=== PATIENT | female | born 1970 | race Caucasian/White ===

== ENCOUNTER → 2016-10-27 | Outpatient (CLI) | payer OTHER, BC ==
--- NOTE | 2016-10-27 15:14 | US ---
EXAMINATION TYPE: US thyroid st tissue head/neck DATE OF EXAM: 10/27/2016 3:03 PM COMPARISON: Prior thyroid ultrasound July 09, 2015 CLINICAL HISTORY: Follow up thyroid nodule. GLAND SIZE: Right Lobe: 4.6 x 1.0 x 1.6cm Overall Parenchyma: homogenous Left Lobe: 4.4 x 1.3 x 1.4cm Overall Parenchyma: homogeneous Isthmus Thickness: 0.3cm NODULES RIGHT: # of nodules measured on right: 2 1. 0.7 X 0.4 x 0.6 cm hypoechoic solid nodule at the upper pole with well-defined margins. This nod ule is wider than tall and shows intranodular vascularity. Prior size: 0.4 x 0.3 x 0.3 cm 2. 0.5 X 0.4 x 0.5 cm hypoechoic solid nodule at the upper pole with well-defined margins. This nodu le is wider than tall and shows intranodular vascularity. Prior size: no previous LEFT: # of nodules measured on left: 1 1. 0.4 X 0.3 x 0.5 cm hypoechoic solid nodule at the mid pole with well-defined margins. This nodul e is wider than tall and shows intranodular vascularity. Prior size: no previous ISTHMUS: # of nodules measured in the isthmus: 0 TECHNOLOGIST IMPRESSION: Homogeneous thyroid with bilateral nodules described above, bilateral neck scanned, no abnormal lymphadenopathy noted. Thyroid gland remains normal in size with some scattered small subcentimeter nodules identified. Some nodules are not clearly seen on prior exam. IMPRESSION: Scattered subcentimeter nodules are seen on current study. No new greater than 1 cm solid or cystic n odules are evident bilaterally.
== END | disposition home or self-care (01) ==
LOC: RADUSWWP 14:44
PROVIDERS: ATTEND Internal Medicine Endocrinology, Diabetes & Metabolism
DX: E04.2 Nontoxic multinodular goiter (principal)
CPT/HCPCS: 76536

== ENCOUNTER → 2017-11-01 | Outpatient (CLI) | payer OTHER ==
[2017-11-01 09:59] LABS: Basophils # (A) 0.1 k/uL (0-0.2); Basophils % (A) 1 %; Eosinophils # (A) 0.1 k/uL (0-0.7); Eosinophils % (A) 2 %; HCT 43.8 % (34.0-46.0); HGB 13.3 gm/dL (11.4-16.0); Hypochromasia Slight; Lymphocytes # (A) 3.3 k/uL (1.0-4.8); Lymphocytes % (A) 49 %; MCH 28.1 pg (25.0-35.0); MCHC 30.3 g/dL (31.0-37.0); MCV 92.6 fL (80.0-100.0); Mean Platelet Volume 7.3; Monocytes # (A) 0.4 k/uL (0-1.0); Monocytes % (A) 6 %; Neutrophils # (A) 2.6 k/uL (1.3-7.7); Neutrophils % (A) 39 %; Platelet Count 361 k/uL (150-450); RBC 4.73 m/uL (3.80-5.40); RDW 15.3 % (11.5-15.5); WBC 6.7 k/uL (3.8-10.6)
[2017-11-01 10:16] LABS: ALT 51 U/L (9-52); AST 30 U/L (14-36); Albumin 4.1 g/dL (3.5-5.0); Alkaline Phosphatase 70 U/L (38-126); Anion Gap 7 mmol/L; Blood Urea Nitrogen 18 mg/dL (7-17); Calcium 10.1 mg/dL (8.4-10.2); Carbon Dioxide 36 mmol/L (22-30); Chloride 100 mmol/L (98-107); Cholesterol 185 mg/dL (<200); Glucose 106 mg/dL (74-99); HDL Cholesterol 66 mg/dL (40-60); LDL Cholesterol,Calculated 101 mg/dL (0-99); Potassium 4.7 mmol/L (3.5-5.1); Sodium 143 mmol/L (137-145); Total Bilirubin 0.5 mg/dL (0.2-1.3); Triglycerides 90 mg/dL (<150)
[2017-11-01 10:30] LABS: T4, Free (Free Thyroxine) 0.96 ng/dL (0.78-2.19)
--- NOTE | 2017-11-01 11:03 | US ---
EXAMINATION TYPE: US thyroid st tissue head/neck DATE OF EXAM: 11/01/2017 COMPARISON: 10/27/2016 CLINICAL HISTORY: 47 year-old female follow-up multinodular thyroid E04.2 Multinodular Thyroid. Follo w up nodules TECHNIQUE: Multiple sonographic images of the thyroid gland are obtained. FINDINGS: GLAND SIZE: Right Lobe: 4.5 x 1.7 x 0.9 cm Overall Parenchyma: homogenous Left Lobe: 4.4 x 1.7 x 1.2 cm Overall Parenchyma: homogeneous Isthmus Thickness: 0.3 cm NODULES RIGHT: # of nodules measured on right: 2 1. 0.7 X 0.5 x 0.5 cm hypoechoic mixed nodule at the upper pole with well-defined margins. This no dule is taller than wide and shows intranodular vascularity. Prior size: 0.7 x 0.4 x 0.6 cm 2. 0.5 X 0.5 x 0.4 cm hypoechoic solid nodule at the upper pole with well-defined margins. This nod ule is taller than wide and shows intranodular vascularity. Prior size: 0.5 x 0.4 x 0.5 cm LEFT: # of nodules measured on left: 1 1. 0.5 X 0.5 x 0.3 cm hypoechoic solid nodule at the mid pole with well-defined margins. This nodu le is taller than wide and shows intranodular vascularity. Prior size: 0.4 x 0.3 x 0.5 cm ISTHMUS: # of nodules measured in the isthmus: 0 Bilateral neck scanned, no evidence of lymphadenopathy. IMPRESSION: 3 nodules, 2 on the right and one on the left all measuring 7 mm or less, not significantly changed f rom 10/27/2016.
[2017-11-01 16:10] LABS: Hemoglobin A1C 5.6 % (4.0-6.0)
== END | disposition home or self-care (01) ==
LOC: RADUSWWP 09:04
PROVIDERS: ATTEND Internal Medicine Critical Care Medicine
DX: E04.2 Nontoxic multinodular goiter (principal); C50.919 Malignant neoplasm of unspecified site of unspecified female breast; E03.9 Hypothyroidism, unspecified; R53.83 Other fatigue; Z79.899 Other long term (current) drug therapy
CPT/HCPCS: 36415; 76536; 80053; 80061; 82306; 83036; 84439; 84443; 85025

== ENCOUNTER 2018-10-07 16:04 | Emergency (ER) | payer OTHER ==
[2018-10-07 16:10] VITALS: BP 162/93; PULSE 110; RESP 20; TEMP 98.1
--- NOTE | 2018-10-07 16:24 | ED ---
General Adult HPI - General Chief complaint: Fall Stated complaint: IHS-Fall Time Seen by Provider: 10/07/18 16:11 Source: patient Mode of arrival: ambulatory Limitations: no limitations - History of Present Illness Initial comments: Patient is a 48-year-old female presents with a chief complaint of a fall and left lower back pain. Patient says that she felt on wooden steps at approximately 2 PM. Patient states that she has tightness of the muscles on the left side of her lower back. She denies loss of consciousness or head trauma. She was able to ambulate after the event. She drove herself to the emergency department. She denies any other complaints or injuries today. - Related Data Home Medications Medication Instructions Recorded Confirmed Biotin 5 mg PO DAILY 04/25/14 08/28/15 Budesonide [Pulmicort Flexhaler] 2 puff INHALATION BID 04/25/14 08/28/15 Cetirizine HCl/Pseudoephedrine 1 each PO DAILY 04/25/14 08/28/15 [Zyrtec-D Tablet] Cholecalciferol [Vitamin D3] 1,000 unit PO DAILY 04/25/14 08/28/15 Montelukast Sodium [Singulair] 10 mg PO HS 04/25/14 08/28/15 RABEprazole SODIUM [Aciphex] 20 mg PO BID 04/25/14 08/28/15 Tamoxifen [Nolvadex] 20 mg PO DAILY 04/25/14 08/28/15 diphenhydrAMINE HCL [Benadryl] 25 mg PO HS 04/25/14 08/28/15 Aspirin 81 mg PO DAILY 08/26/15 08/28/15 I-Cool 1 tab PO DAILY 08/26/15 08/28/15 Meclizine [Antivert] 12.5 mg PO BID 08/26/15 08/28/15 Venlafaxine HCl [Effexor] 37.5 mg PO PC-SUPPER 08/26/15 08/28/15 cloNIDine HCL [Catapres] 0.2 mg PO HS 08/26/15 08/28/15 Fesoterodine Fumarate [Toviaz] 8 mg PO DAILY 08/28/15 08/28/15 Olodaterol HCl [[place]riverdi Respimat] 2 inhalation PO DAILY 08/28/15 08/28/15 Previous Rx's Medication Instructions Recorded HYDROcodone/APAP 5-325MG [[place] 1 each PO Q4HR PRN #30 tab 08/02/14 5-325] Ibuprofen [Motrin] 800 mg PO QID PRN #30 tab 08/02/14 Acetaminophen Tab [Tylenol Tab] 1,000 mg PO Q6HR #28 tablet 10/07/18 Ibuprofen [Motrin] 600 mg PO Q6HR #21 tab 10/07/18 Allergies Allergy/AdvReac Type Severity Reaction Status Date / Time adhesive Allergy Rash/Hives Verified 10/07/18 16:10 corn syrup Allergy Wheezing Verified 10/07/18 16:10 Milk Containing Products Allergy Wheezing Verified 10/07/18 16:10 Review of Systems ROS Statement: Those systems with pertinent positive or pertinent negative responses have been documented in the HPI. ROS Other: All systems not noted in ROS Statement are negative. Musculoskeletal: Reports: back pain Past Medical History Past Medical History: Asthma, Cancer, GERD/Reflux, Hypertension Additional Past Medical History / Comment(s): seasonal allergies, breast cancer. VERTIGO History of Any Multi-Drug Resistant Organisms: None Reported Past Surgical History: Breast Surgery, Hysterectomy, Tonsillectomy Additional Past Surgical History / Comment(s): lumpectomy bilat. bladder repair x2- r/t 2013 bladder and urethra injury during hysterectomy. rt breast incisional bx. colonocopy. laporoscopy. colonoscopy. oophorectomy Past Anesthesia/Blood Transfusion Reactions: Previous Problems w/ Anesthesia, Motion Sickness, Postoperative Nausea & Vomiting (PONV) Additional Past Anesthesia/Blood Transfusion Reaction / Comment(s): sensitive to general anesthesia Past Psychological History: No Psychological Hx Reported Smoking Status: Never smoker Past Alcohol Use History: Occasional Past Drug Use History: None Reported - Past Family History Mother Family Medical History: No Reported History General Exam Limitations: no limitations General appearance: alert, in no apparent distress Head exam: Present: atraumatic, normocephalic, normal inspection Eye exam: Present: normal appearance, PERRL, EOMI. Absent: scleral icterus, conjunctival injection, periorbital swelling ENT exam: Present: normal exam, mucous membranes moist Neck exam: Present: normal inspection. Absent: tenderness, meningismus, lymphadenopathy Respiratory exam: Present: normal lung sounds bilaterally. Absent: respiratory distress, wheezes, rales, rhonchi, stridor Cardiovascular Exam: Present: regular rate, normal rhythm, normal heart sounds. Absent: systolic murmur, diastolic murmur, rubs, gallop, clicks GI/Abdominal exam: Present: soft, normal bowel sounds. Absent: distended, tenderness, guarding, rebound, rigid Rectal exam: Present: deferred Extremities exam: Present: normal inspection, full ROM, normal capillary refill. Absent: tenderness, pedal edema, joint swelling, calf tenderness Back exam: Present: tenderness (Left lower back tenderness to palpation, hypertonic muscles appreciated.), muscle spasm, paraspinal tenderness, other. Absent: vertebral tenderness Neurological exam: Present: alert, oriented X3, CN II-XII intact Psychiatric exam: Present: normal affect, normal mood Skin exam: Present: warm, dry, intact, normal color. Absent: rash Course Vital Signs 10/07/18 16:07 Temperature 98.1 F Pulse Rate 110 H Respiratory 20 Rate Blood Pressure 162/93 O2 Sat by Pulse 100 Oximetry Medical Decision Making - Medical Decision Making Patient presents with a chief complaint of back pain after a fall. On initial evaluation, vital signs are stable patient is mildly tachycardic. She is in no acute distress. She denies any bowel or bladder incontinence. She is able to angulate well without assistance. There is no midline tenderness. At this time there are no indication for x-rays. Patient was prescribed Motrin and Tylenol and instructed to use heat and ice as tolerated. Patient stable for discharge. She was instructed to follow up with primary care 1-2 days, return to ED if symptoms worsen or change. Disposition Clinical Impression: Fall Disposition: HOME SELF-CARE Condition: Good Instructions: Muscle Spasm (ED) Prescriptions: Acetaminophen Tab [Tylenol Tab] 1,000 mg PO Q6HR #28 tablet Ibuprofen [Motrin] 600 mg PO Q6HR #21 tab Is patient prescribed a controlled substance at d/c from ED?: No Referrals: Lloyd Brooks DO [Primary Care Provider] - 1-2 days
== END 2018-10-07 16:54 | disposition home or self-care (01) ==
LOC: EC 16:04
DX: M62.830 Muscle spasm of back (principal); R00.0 Tachycardia, unspecified; J45.909 Unspecified asthma, uncomplicated; K21.9 Gastro-esophageal reflux disease without esophagitis; I10 Essential (primary) hypertension; Z91.011 Allergy to milk products; Z91.018 Allergy to other foods; Z91.048 Other nonmedicinal substance allergy status; Z79.51 Long term (current) use of inhaled steroids; Z79.82 Long term (current) use of aspirin; Z79.899 Other long term (current) drug therapy; Z85.3 Personal history of malignant neoplasm of breast; Z98.890 Other specified postprocedural states; W01.0XXA Fall on same level from slipping, tripping and stumbling without subsequent striking against object, initial encounter; Y99.0 Civilian activity done for income or pay
CPT/HCPCS: 99283

== ENCOUNTER → 2018-10-14 | Outpatient (CLI) | payer OTHER ==
--- NOTE | 2018-10-14 17:56 | XR ---
EXAMINATION TYPE: XR Hip RT and AP Pelvis DATE OF EXAM: 10/14/2018 COMPARISON: NONE HISTORY: Right hip pain after a fall TECHNIQUE: A single AP view of the pelvis is obtained. Two views of the right hip are obtained. FINDINGS: The pelvic ring is intact. Proximal right femur and hip joint appear normal. There is no si gn of hip dysplasia. Sacroiliac joints appear normal. IMPRESSION: Normal pelvis and right hip exam.
== END | disposition home or self-care (01) ==
LOC: RADXRMAIN 17:08
PROVIDERS: ATTEND Emergency Medicine
DX: S73.101A Unspecified sprain of right hip, initial encounter (principal); S30.0XXA Contusion of lower back and pelvis, initial encounter
CPT/HCPCS: 73502

== ENCOUNTER → 2018-10-19 | Outpatient (CLI) | payer OTHER ==
--- NOTE | 2018-10-19 14:56 | XR ---
EXAMINATION TYPE: XR lumbar spine 2 or 3V DATE OF EXAM: 10/19/2018 COMPARISON: NONE HISTORY: 48-year-old female lumbar pain after fall last month TECHNIQUE: 3 views FINDINGS: 5 lumbar type vertebral bodies. Incidental posterior fusion defect at L5. Mild multilevel degenerativ e disc disease. There is a grade 1, nearly grade 2 anterolisthesis at L5-S1. Vertebral body heights a re preserved. IMPRESSION: 1. Grade 1, nearly grade 2 anterolisthesis of L5-S1. This could be on a degenerative basis or could r eflect underlying L5 spondylolysis. 2. Mild multilevel degenerative disc disease. Facet arthropathy mid to lower lumbar spine. 3. No vertebral compression collapse.
== END ==
LOC: RADXRMAIN 14:29
PROVIDERS: ATTEND Emergency Medicine
DX: S30.0XXD Contusion of lower back and pelvis, subsequent encounter (principal)
CPT/HCPCS: 72100

== ENCOUNTER → 2018-10-28 | Outpatient (CLI) | payer OTHER ==
--- NOTE | 2018-10-28 15:21 | US ---
EXAMINATION TYPE: US thyroid st tissue head/neck DATE OF EXAM: 10/28/2018 COMPARISON: US 11/01/2017 and 10/27/2016 CLINICAL HISTORY: E04.2 Nodules. GLAND SIZE: Right Lobe: 5.2 x 1.1 x 1.7 cm Overall Parenchyma: homogenous Left Lobe: 4.6 x 1.5 x 1.6 cm Overall Parenchyma: homogeneous Isthmus Thickness: 0.3 cm NODULES RIGHT: # of nodules measured on right: 2 1. 0.7 X 0.4 x 0.6 cm hypoechoic mixed nodule at the upper pole with well-defined margins; . This nodule is wider than tall and shows intranodular vascularity. Prior size: 0.7 x 0.5 x 0.5 cm 2. 0.5 X 0.5 x 0.6 cm hypoechoic solid nodule at the upper pole with well-defined margins; . This n odule is wider than tall and shows intranodular vascularity. Prior size: 0.5 x 0.5 x 0.4 cm LEFT: # of nodules measured on left: 1 1. 0.6 X 0.4 x 0.4 cm hypoechoic solid nodule at the mid pole with well-defined margins; . This no dule is wider than tall and shows intranodular vascularity. Prior size: 0.5 x 0.5 x 0.3 cm ISTHMUS: # of nodules measured in the isthmus: 0 Bilateral neck scanned, no evidence of lymphadenopathy. IMPRESSION: Similar-appearing subcentimeter bilateral thyroid nodules in comparison to exam of 10/27/2016. Continu ed surveillance could be considered.
== END | disposition home or self-care (01) ==
LOC: RADUSWWP 14:40
PROVIDERS: ATTEND Internal Medicine Endocrinology, Diabetes & Metabolism
DX: E04.2 Nontoxic multinodular goiter (principal)
CPT/HCPCS: 76536

== ENCOUNTER → 2018-12-10 | Outpatient (CLI) | payer OTHER ==
[2018-12-10 10:39] LABS: Basophils # (A) 0.1 k/uL (0-0.2); Basophils % (A) 1 %; Eosinophils # (A) 0.2 k/uL (0-0.7); Eosinophils % (A) 3 %; HCT 41.7 % (34.0-46.0); HGB 13.3 gm/dL (11.4-16.0); Lymphocytes # (A) 2.9 k/uL (1.0-4.8); Lymphocytes % (A) 47 %; MCH 29.2 pg (25.0-35.0); MCHC 31.9 g/dL (31.0-37.0); MCV 91.5 fL (80.0-100.0); Mean Platelet Volume 7.1; Monocytes # (A) 0.4 k/uL (0-1.0); Monocytes % (A) 6 %; Neutrophils # (A) 2.4 k/uL (1.3-7.7); Neutrophils % (A) 39 %; Platelet Count 379 k/uL (150-450); RBC 4.56 m/uL (3.80-5.40); RDW 14.3 % (11.5-15.5)
[2018-12-10 16:54] LABS: Albumin 4.6 g/dL (3.80-4.90); Albumin/Globulin Ratio 1.77 (1.60-3.17); Anion Gap 6.5 mmol/L (4.00-12.00); Calcium 10.1 mg/dL (8.7-10.3); Carbon Dioxide 29.5 mmol/L (21.6-31.8); Globulin 2.6 g/dL (1.6-3.3); Potassium 4.2 mmol/L (3.5-5.5); Total Bilirubin 0.4 mg/dL (0.3-1.2); Total Protein 7.2 g/dL (6.2-8.2)
[2018-12-10 17:02] LABS: T4, Free (Free Thyroxine) 1.2 ng/dL (0.80-1.80)
[2018-12-10 20:15] LABS: Hemoglobin A1C 5.7 % (4.0-6.0)
== END | disposition home or self-care (01) ==
LOC: LABWHC1 09:58
PROVIDERS: ATTEND Internal Medicine Critical Care Medicine
DX: Z00.00 Encounter for general adult medical examination without abnormal findings (principal); J45.909 Unspecified asthma, uncomplicated; C50.919 Malignant neoplasm of unspecified site of unspecified female breast; K21.9 Gastro-esophageal reflux disease without esophagitis; Z86.39 Personal history of other endocrine, nutritional and metabolic disease
CPT/HCPCS: 36415; 80053; 80061; 82306; 83036; 84439; 84443; 85025

== ENCOUNTER 2019-01-30 17:24 | Emergency (ER) | payer OTHER ==
[2019-01-30 17:29] VITALS: RESP 18; TEMP 98.3
[2019-01-30] MEDS ORDERED: SODIUM CHLORIDE 0.9% 500 ML 500 ML IV STA (17:50)
--- NOTE | 2019-01-30 17:54 | ED ---
General Adult HPI - General Chief complaint: Arrhythmia/Palpitations Stated complaint: palpitations Time Seen by Provider: 01/30/19 17:25 Source: patient, RN notes reviewed Mode of arrival: ambulatory Limitations: no limitations - History of Present Illness Initial comments: This is a 49-year-old female presents emergency Department with a past medical history significant for breast cancer. Patient comes in today because she felt some fluttering in her chest when she went to an urgent care and they were concerned so they wanted to come see us in the emergency department. Patient denies any chest pain. Patient denies any shortness of breath or difficulty breathing. Patient denies any history of any arrhythmias or atrial fibrillation. Patient denies any recent fever chills or cough per patient denies any excessive use of caffeine. Patient denies any nausea vomiting diarrhea. Patient denies abdominal pain. - Related Data Home Medications Medication Instructions Recorded Confirmed Biotin 5 mg PO DAILY 04/25/14 01/30/19 Cetirizine HCl/Pseudoephedrine 1 each PO DAILY 04/25/14 01/30/19 [Zyrtec-D Tablet] Cholecalciferol [Vitamin D3] 1,000 unit PO DAILY 04/25/14 01/30/19 Montelukast Sodium [Singulair] 10 mg PO HS 04/25/14 01/30/19 RABEprazole SODIUM [Aciphex] 20 mg PO BID 04/25/14 01/30/19 diphenhydrAMINE HCL [Benadryl] 25 mg PO HS 04/25/14 01/30/19 Meclizine [Antivert] 12.5 mg PO BID 08/26/15 01/30/19 cloNIDine HCL [Catapres] 0.2 mg PO HS 08/26/15 01/30/19 ALPRAZolam [Xanax] 0.25 mg PO BID 01/30/19 01/30/19 Ascorbic Acid [Vitamin C] 1,000 mg PO DAILY 01/30/19 01/30/19 Calcium 500mg Gummy 500 mg PO BID 01/30/19 01/30/19 Fesoterodine Fumarate [Toviaz] 4 mg PO DAILY PRN 01/30/19 01/30/19 HYDROcodone/APAP 7.5-325MG [[place] 1 tab PO Q6H PRN 01/30/19 01/30/19 7.5-325] Maxair Autohaler 1 puff INHALATION RT-DAILY 01/30/19 01/30/19 Meloxicam [Mobic] 7.5 mg PO DAILY 01/30/19 01/30/19 Pedi Multivit No.25/Folic Acid 300 mcg PO DAILY 01/30/19 01/30/19 [Flintstones Multivit Chew Tab] Polyethylene Glycol 3350 [Miralax] 17 gm PO DAILY PRN 01/30/19 01/30/19 Ranitidine HCl [Zantac] 300 mg PO HS 01/30/19 01/30/19 Salmeterol Xinafoate [Serevent 1 puff INHALATION RT-BID PRN 01/30/19 01/30/19 Diskus] cloNIDine HCL [Catapres] 0.05 mg PO BID PRN 01/30/19 01/30/19 Allergies Allergy/AdvReac Type Severity Reaction Status Date / Time adhesive Allergy Rash/Hives Verified 01/30/19 17:58 coconut Allergy Anaphylaxis Verified 01/30/19 18:15 corn syrup Allergy Wheezing Verified 01/30/19 17:58 Milk Containing Products Allergy Wheezing Verified 01/30/19 17:58 walnut Allergy Anaphylaxis Verified 01/30/19 18:15 Review of Systems ROS Statement: Those systems with pertinent positive or pertinent negative responses have been documented in the HPI. ROS Other: All systems not noted in ROS Statement are negative. Past Medical History Past Medical History: Asthma, Cancer, GERD/Reflux, Hypertension Additional Past Medical History / Comment(s): seasonal allergies, breast cancer. VERTIGO History of Any Multi-Drug Resistant Organisms: None Reported Past Surgical History: Breast Surgery, Hysterectomy, Tonsillectomy Additional Past Surgical History / Comment(s): lumpectomy bilat. bladder repair x2- r/t 2014 bladder and urethra injury during hysterectomy. rt breast incisional bx. colonocopy. laporoscopy. colonoscopy. oophorectomy Past Anesthesia/Blood Transfusion Reactions: Previous Problems w/ Anesthesia, Motion Sickness, Postoperative Nausea & Vomiting (PONV) Additional Past Anesthesia/Blood Transfusion Reaction / Comment(s): sensitive to general anesthesia Past Psychological History: No Psychological Hx Reported Smoking Status: Never smoker Past Alcohol Use History: Occasional Past Drug Use History: None Reported - Past Family History Mother Family Medical History: No Reported History General Exam - General Exam Comments Initial Comments: GENERAL: Patient is well-developed and well-nourished. Patient is nontoxic and well- hydrated and is in mild distress. ENT: Neck is soft and supple. No significant lymphadenopathy is noted. Oropharynx is clear. Moist mucous membranes. Neck has full range of motion without eliciting any pain. EYES: The sclera were anicteric and conjunctiva were pink and moist. Extraocular movements were intact and pupils were equal round and reactive to light. Eyelids were unremarkable. PULMONARY: Unlabored respirations. Good breath sounds bilaterally. No audible rales rhonchi or wheezing was noted. CARDIOVASCULAR: There is a regular rate and rhythm without any murmurs gallops or rubs. ABDOMEN: Soft and nontender with normal bowel sounds. No palpable organomegaly was noted. There is no palpable pulsatile mass. SKIN: Skin is clear with no lesions or rashes and otherwise unremarkable. NEUROLOGIC: Patient is alert and oriented x3. Cranial nerves II through XII are grossly intact. Motor and sensory are also intact. Normal speech, volume and content. Symmetrical smile. MUSCULOSKELETAL: Normal extremities with adequate strength and full range of motion. No lower extremity swelling or edema. No calf tenderness. LYMPHATICS: No significant lymphadenopathy is noted PSYCHIATRIC: Patient is mildly anxious Limitations: no limitations Course Vital Signs 01/30/19 01/30/19 17:25 18:33 Temperature 98.3 F Pulse Rate 103 H 92 Respiratory 18 18 Rate Blood Pressure 158/89 O2 Sat by Pulse 99 99 Oximetry Medical Decision Making - Medical Decision Making EKG shows normal sinus rhythm at 98 bpm NM interval is on a 38 QRSs 80 QT interval 360 QTC is 459 per patient's EKG shows no ST segment elevation or depression or T wave abnormalities are noted. Chest x-ray shows no acute abnormality. Patient had no ectopy while in the emergency department. - Lab Data Result diagrams: 01/30/19 18:27 01/30/19 18:27 Lab Results 01/30/19 01/30/19 01/30/19 Range/Units 18:27 18:27 18:27 WBC 5.8 (3.8-10.6) k/uL RBC 4.63 (3.80-5.40) m/uL Hgb 13.1 (11.4-16.0) gm/dL Hct 40.2 (34.0-46.0) % MCV 86.6 (80.0-100.0) fL MCH 28.3 (25.0-35.0) pg MCHC 32.7 (31.0-37.0) g/dL RDW 14.0 (11.5-15.5) % Plt Count 369 (150-450) k/uL Neutrophils % 37 % Lymphocytes % 50 % Monocytes % 6 % Eosinophils % 2 % Basophils % 1 % Neutrophils # 2.2 (1.3-7.7) k/uL Lymphocytes # 2.9 (1.0-4.8) k/uL Monocytes # 0.4 (0-1.0) k/uL Eosinophils # 0.1 (0-0.7) k/uL Basophils # 0.1 (0-0.2) k/uL PT 9.9 (9.0-12.0) sec INR 0.9 (<1.2) APTT 26.9 (22.0-30.0) sec Sodium 139 (137-145) mmol/L Potassium 4.1 (3.5-5.1) mmol/L Chloride 103 (98-107) mmol/L Carbon Dioxide 29 (22-30) mmol/L Anion Gap 7 mmol/L BUN 15 (7-17) mg/dL Creatinine 0.64 (0.52-1.04) mg/dL Est GFR (CKD-EPI)AfAm >90 (>60 ml/min/1.73 sqM) Est GFR (CKD-EPI)NonAf >90 (>60 ml/min/1.73 sqM) Glucose 99 (74-99) mg/dL Calcium 10.2 (8.4-10.2) mg/dL Magnesium 2.1 (1.6-2.3) mg/dL Total Bilirubin 0.3 (0.2-1.3) mg/dL AST 37 H (14-36) U/L ALT 48 (9-52) U/L Alkaline Phosphatase 87 (38-126) U/L Troponin I (0.000-0.034) ng/mL Total Protein 7.5 (6.3-8.2) g/dL Albumin 4.7 (3.5-5.0) g/dL TSH 0.251 L (0.465-4.680) mIU/L Free T4 0.94 (0.78-2.19) ng/dL 01/30/19 Range/Units 18:27 WBC (3.8-10.6) k/uL RBC (3.80-5.40) m/uL Hgb (11.4-16.0) gm/dL Hct (34.0-46.0) % MCV (80.0-100.0) fL MCH (25.0-35.0) pg MCHC (31.0-37.0) g/dL RDW (11.5-15.5) % Plt Count (150-450) k/uL Neutrophils % % Lymphocytes % % Monocytes % % Eosinophils % % Basophils % % Neutrophils # (1.3-7.7) k/uL Lymphocytes # (1.0-4.8) k/uL Monocytes # (0-1.0) k/uL Eosinophils # (0-0.7) k/uL Basophils # (0-0.2) k/uL PT (9.0-12.0) sec INR (<1.2) APTT (22.0-30.0) sec Sodium (137-145) mmol/L Potassium (3.5-5.1) mmol/L Chloride (98-107) mmol/L Carbon Dioxide (22-30) mmol/L Anion Gap mmol/L BUN (7-17) mg/dL Creatinine (0.52-1.04) mg/dL Est GFR (CKD-EPI)AfAm (>60 ml/min/1.73 sqM) Est GFR (CKD-EPI)NonAf (>60 ml/min/1.73 sqM) Glucose (74-99) mg/dL Calcium (8.4-10.2) mg/dL Magnesium (1.6-2.3) mg/dL Total Bilirubin (0.2-1.3) mg/dL AST (14-36) U/L ALT (9-52) U/L Alkaline Phosphatase (38-126) U/L Troponin I <0.012 (0.000-0.034) ng/mL Total Protein (6.3-8.2) g/dL Albumin (3.5-5.0) g/dL TSH (0.465-4.680) mIU/L Free T4 (0.78-2.19) ng/dL Disposition Clinical Impression: Palpitations Disposition: HOME SELF-CARE Condition: Good Instructions (If sedation given, give patient instructions): Heart Palpitations (ED) Is patient prescribed a controlled substance at d/c from ED?: No Referrals: Lloyd Brooks DO [Primary Care Provider] - 1-2 days Time of Disposition: 20:17
[2019-01-30 18:37] LABS: Basophils # (A) 0.1 k/uL (0-0.2); Basophils % (A) 1 %; Eosinophils # (A) 0.1 k/uL (0-0.7); Eosinophils % (A) 2 %; HCT 40.2 % (34.0-46.0); HGB 13.1 gm/dL (11.4-16.0); Lymphocytes # (A) 2.9 k/uL (1.0-4.8); Lymphocytes % (A) 50 %; MCH 28.3 pg (25.0-35.0); MCHC 32.7 g/dL (31.0-37.0); MCV 86.6 fL (80.0-100.0); Mean Platelet Volume 7.1; Monocytes # (A) 0.4 k/uL (0-1.0); Monocytes % (A) 6 %; Neutrophils # (A) 2.2 k/uL (1.3-7.7); Neutrophils % (A) 37 %; Platelet Count 369 k/uL (150-450); RBC 4.63 m/uL (3.80-5.40); WBC 5.8 k/uL (3.8-10.6)
[2019-01-30 18:46] LABS: INR 0.9 (<1.2); Partial Thromboplastin Time 26.9 sec (22.0-30.0); Prothrombin Time 9.9 sec (9.0-12.0)
[2019-01-30 18:47] LABS: ALT 48 U/L (9-52); AST 37 U/L (14-36); Albumin 4.7 g/dL (3.5-5.0); Alkaline Phosphatase 87 U/L (38-126); Anion Gap 7 mmol/L; Blood Urea Nitrogen 15 mg/dL (7-17); Calcium 10.2 mg/dL (8.4-10.2); Carbon Dioxide 29 mmol/L (22-30); Chloride 103 mmol/L (98-107); Glucose 99 mg/dL (74-99); Magnesium 2.1 mg/dL (1.6-2.3); Potassium 4.1 mmol/L (3.5-5.1); Sodium 139 mmol/L (137-145); Total Bilirubin 0.3 mg/dL (0.2-1.3); Total Protein 7.5 g/dL (6.3-8.2)
[2019-01-30 19:03] LABS: T4, Free (Free Thyroxine) 0.94 ng/dL (0.78-2.19)
--- NOTE | 2019-01-30 19:07 | XR ---
EXAMINATION TYPE: XR chest 2V DATE OF EXAM: 01/30/2019 COMPARISON: Chest x-ray December 06, 2017. HISTORY: Palpitations for a few weeks. History of breast cancer. TECHNIQUE: Frontal and lateral views of the chest are obtained. FINDINGS: Overlying EKG leads are present. There is no focal air space opacity, pleural effusion, or pneumothorax seen. The cardiac silhouette size is within normal limits. The osseous structures are intact. IMPRESSION: No acute cardiopulmonary process. No significant change from prior.
[2019-01-30 20:38] VITALS: BP 150/85; PULSE 89
== END 2019-01-30 20:45 | disposition home or self-care (01) ==
LOC: EC 17:24
DX: R00.2 Palpitations (principal); J45.909 Unspecified asthma, uncomplicated; K21.9 Gastro-esophageal reflux disease without esophagitis; I10 Essential (primary) hypertension; Z79.899 Other long term (current) drug therapy; Z79.1 Long term (current) use of non-steroidal anti-inflammatories (NSAID); Z91.011 Allergy to milk products; Z91.018 Allergy to other foods; Z91.048 Other nonmedicinal substance allergy status; Z85.3 Personal history of malignant neoplasm of breast; Z98.890 Other specified postprocedural states
CPT/HCPCS: 36415; 71046; 80053; 83735; 84439; 84443; 84484; 85025; 85610; 85730; 93005; 96360; 96361; 99285

== ENCOUNTER → 2019-06-20 | Outpatient (CLI) | payer OTHER ==
--- NOTE | 2019-06-20 09:03 | US ---
EXAMINATION TYPE: US abdomen complete DATE OF EXAM: 06/20/2019 COMPARISON: CT of 2015 CLINICAL HISTORY: R10.11 upper right quadrant pain. EXAM MEASUREMENTS: Liver Length: 13.7 cm Gallbladder Wall: 0.2 cm CBD: 0.5 cm Spleen: 10.1 cm Right Kidney: 11.4 x 4.4 x 5.8 cm Left Kidney: 10.7 x 5.0 x 4.6 cm Pancreas: wnl Liver: wnl Gallbladder: wnl Evidence for sonographic Collins's sign: no CBD: wnl Spleen: wnl Right Kidney: No hydronephrosis or masses seen Left Kidney: No hydronephrosis or masses seen Upper IVC: wnl Abd Aorta: wnl The liver is homogenous. The intrahepatic portion of the IVC and proximal abdominal aorta are within normal limits. There is no evidence of cholelithiasis. Common bile duct is unremarkable. The visu alized portions of the pancreas are homogenous. The spleen is unremarkable. Kidneys are symmetric a nd free of hydronephrosis. No renal lesions are seen. IMPRESSION: No sonographic evidence of cholelithiasis nor acute cholecystitis. Visualized portions of the liver appear homogeneous. No hydronephrosis of either kidney. Unremarkable abdominal ultrasound.
== END | disposition home or self-care (01) ==
LOC: RADUSWWP 07:31
PROVIDERS: ATTEND Internal Medicine Critical Care Medicine
DX: R10.11 Right upper quadrant pain (principal)
CPT/HCPCS: 76700

== ENCOUNTER → 2019-08-04 | Outpatient (CLI) | payer OTHER | END | disposition home or self-care (01) | LOC: LABWHC1 09:34 | PROVIDERS: ATTEND Nurse Practitioner Adult Health | DX: E03.9 Hypothyroidism, unspecified (principal); R00.0 Tachycardia, unspecified | CPT/HCPCS: 36415; 84443; 84481 ==

== ENCOUNTER → 2019-09-08 | Outpatient (CLI) | payer OTHER ==
[2019-09-08 18:20] LABS: Ionized Calcium 5.1 mg/dL (4.5-5.3)
[2019-09-09 00:20] LABS: African American GFR (CKD) 86.4 (60.0-200.0); Anion Gap 7.2 mmol/L (4.00-12.00); BUN/Creat Ratio 21.11 Ratio (12.00-20.00); Calcium 9.8 mg/dL (8.7-10.3); Carbon Dioxide 29.8 mmol/L (21.6-31.8); Magnesium 2.1 mg/dL (1.5-2.4); Non-African American GFR(CKD) 74.6 (60.0-200.0); Phosphorus 3.5 mg/dL (2.4-5.1); Potassium 4.3 mmol/L (3.5-5.5)
== END | disposition home or self-care (01) ==
LOC: LABWHC1 17:25
PROVIDERS: ATTEND Internal Medicine
DX: E83.52 Hypercalcemia (principal)
CPT/HCPCS: 36415; 80048; 82306; 82330; 83735; 83970; 84100

== ENCOUNTER → 2019-12-04 | Outpatient (CLI) | payer BC ==
[2019-12-04 10:46] LABS: Basophils # (A) 0.2 k/uL (0-0.2); Basophils % (A) 3 %; Eosinophils # (A) 0.1 k/uL (0-0.7); Eosinophils % (A) 1 %; HCT 44.1 % (34.0-46.0); HGB 14.1 gm/dL (11.4-16.0); Lymphocytes # (A) 2.6 k/uL (1.0-4.8); Lymphocytes % (A) 37 %; MCH 28.6 pg (25.0-35.0); MCHC 32.1 g/dL (31.0-37.0); MCV 89.3 fL (80.0-100.0); Mean Platelet Volume 7.6; Monocytes # (A) 0.3 k/uL (0-1.0); Monocytes % (A) 5 %; Neutrophils # (A) 3.5 k/uL (1.3-7.7); Neutrophils % (A) 50 %; Platelet Count 396 k/uL (150-450); RBC 4.94 m/uL (3.80-5.40); RDW 13.9 % (11.5-15.5); WBC 6.9 k/uL (3.8-10.6)
[2019-12-04 11:02] LABS: Ionized Calcium 5.3 mg/dL (4.5-5.3)
[2019-12-04 16:36] LABS: ALT 26 U/L (8-44); AST 23 U/L (13-35); African American GFR (CKD) 99.6 (60.0-200.0); Albumin/Globulin Ratio 2.23 (1.60-3.17); Alkaline Phosphatase 100 U/L (41-126); Bilirubin, Conjugated <0.20 mg/dL (0.20-0.40); Carbon Dioxide 28.4 mmol/L (21.6-31.8); Chloride 105 mmol/L (96-109); Chol/HDL Ratio 2.85; Cholesterol 228 mg/dL (0-200); Globulin 2.2 g/dL (1.6-3.3); Glucose 94 mg/dL (70-110); LDL Cholesterol,Calculated 131.6 mg/dL (0.0-131.0); Potassium 4.1 mmol/L (3.5-5.5); Sodium 143 mmol/L (135-145); Total Bilirubin 0.5 mg/dL (0.2-1.2); Total Protein 7.1 g/dL (6.2-8.2)
[2019-12-04 20:28] LABS: Hemoglobin A1C 5.8 % (4.0-6.0)
== END | disposition home or self-care (01) ==
LOC: LABWHC1 10:07
PROVIDERS: ATTEND Internal Medicine Critical Care Medicine
DX: I10 Essential (primary) hypertension (principal); J45.909 Unspecified asthma, uncomplicated; C50.919 Malignant neoplasm of unspecified site of unspecified female breast; E21.3 Hyperparathyroidism, unspecified; Z79.899 Other long term (current) drug therapy
CPT/HCPCS: 36415; 80053; 80061; 82248; 82306; 82330; 83036; 84439; 84443; 85025

== ENCOUNTER → 2019-12-15 | Outpatient (CLI) | payer BC ==
[2019-12-15 11:55] LABS: Appearance,Urine Clear (Clear); Bilirubin,Urine Negative (Negative); Blood,Urine Negative (Negative); Color,Urine Colorless; Glucose,Urine (UA) Negative (Negative); Ketones,Urine Negative (Negative); Leukocyte Esterase,Urine Negative (Negative); Nitrite,Urine Negative (Negative); Protein,Urine Negative (Negative); Specific Gravity,Urine 1.003 (1.001-1.035); Urobilinogen,Urine <2.0 mg/dL (<2.0)
== END | disposition home or self-care (01) ==
LOC: LABWHC1 11:23
PROVIDERS: ATTEND Nurse Practitioner Adult Health
DX: I10 Essential (primary) hypertension (principal); N39.0 Urinary tract infection, site not specified
CPT/HCPCS: 36415; 81003; 82533; 83835; 87086

== ENCOUNTER → 2020-03-26 | Outpatient (CLI) | payer BC ==
--- NOTE | 2020-03-26 16:13 | US ---
EXAMINATION TYPE: US thyroid st tissue head/neck DATE OF EXAM: 03/26/2020 COMPARISON: US 10/28/2018 CLINICAL HISTORY: E04.2 Multi nodule. GLAND SIZE: Right Lobe: 4.7 x 1.1 x 1.8 cm Overall Parenchyma: homogenous Left Lobe: 3.7 x 1.6 x 1.6 cm Overall Parenchyma: homogeneous Isthmus Thickness: 0.3 cm NODULES RIGHT: # of nodules measured on right: 2 1. 0.7 X 0.5 x 0.7 cm hypoechoic solid nodule at the upper pole with well-defined margins; . This nodule is wider than tall and shows intranodular vascularity. Prior size: 0.7 x 0.4 x 0.6 cm 2. 0.5 X 0.5 x 0.6 cm hypoechoic solid nodule at the upper pole with well-defined margins; . This n odule is wider than tall and shows intranodular vascularity. Prior size: 0.5 x 0.5 x 0.6 cm LEFT: # of nodules measured on left: 1 1. 0.5 X 0.3 x 0.3 cm hypoechoic solid nodule at the mid pole with well-defined margins; . This no dule is wider than tall and shows intranodular vascularity. Prior size: 0.6 x 0.4 x 0.4 cm ISTHMUS: # of nodules measured in the isthmus: 0 Bilateral neck scanned, no evidence of lymphadenopathy. Nodules as described. IMPRESSION: Bilateral thyroid nodules with no significant interval growth of the nodules in compariso n to the prior ultrasound of 10/28/2018. These are too small for fine-needle aspiration at this time.
== END | disposition home or self-care (01) ==
LOC: RADUSWWP 15:30
PROVIDERS: ATTEND Internal Medicine Endocrinology, Diabetes & Metabolism
DX: E04.2 Nontoxic multinodular goiter (principal)
CPT/HCPCS: 76536

== ENCOUNTER → 2020-04-18 | Outpatient (CLI) | payer BC ==
[2020-04-18 09:19] LABS: Ionized Calcium 5.3 mg/dL (4.5-5.3)
--- NOTE | 2020-04-18 09:33 | XR ---
EXAMINATION TYPE: XR ribs LT DATE OF EXAM: 04/18/2020 COMPARISON: 01/30/2019 chest HISTORY: 50-year-old female R07.82, rib pain TECHNIQUE: 3 views FINDINGS: No displaced left rib fracture seen. No consolidation, pleural effusion, or pneumothorax on the left. IMPRESSION: No displaced left rib fracture seen.
[2020-04-18 18:31] LABS: Codfish IgE <0.10 kU/L; Egg White IgE <0.10 kU/L
[2020-04-18 18:32] LABS: Clam IgE <0.10 kU/L; Peanut IgE <0.10 kU/L; Shrimp IgE <0.10 kU/L; Soybean IgE <0.10 kU/L
[2020-04-18 18:33] LABS: Scallop IgE <0.10 kU/L; Walnut IgE (Food) <0.10 kU/L
[2020-04-18 18:36] LABS: Dermato. farinae IgE <0.10 kU/L
[2020-04-18 18:37] LABS: Cat Epith & Dander IgE <0.10 kU/L; Cockroach IgE <0.10 kU/L; Dog Dander IgE <0.10 kU/L
[2020-04-18 18:38] LABS: Alternaria alternata IgE <0.10 kU/L; Aspergillus fumagatus IgE <0.10 kU/L; Cladosporian herbarum IgE <0.10 kU/L
[2020-04-18 18:39] LABS: Birch IgE <0.10 kU/L; Maple (Box Elder) IgE <0.10 kU/L; Oak IgE <0.10 kU/L
[2020-04-18 18:40] LABS: Elm IgE <0.10 kU/L; Ragweed,Common IgE <0.10 kU/L
[2020-04-18 18:41] LABS: Red Top (Bentgrass) IgE <0.10 kU/L
== END | disposition home or self-care (01) ==
LOC: LABWHC1 08:01
PROVIDERS: ATTEND Internal Medicine Critical Care Medicine
DX: J45.909 Unspecified asthma, uncomplicated (principal); K13.0 Diseases of lips; R07.82 Intercostal pain
CPT/HCPCS: 36415; 82330; 82533; 82785; 83970; 86003

== ENCOUNTER → 2020-06-21 | Outpatient (CLI) | payer BC | END | disposition home or self-care (01) | LOC: LABWHC1 11:02 | PROVIDERS: ATTEND Neurological Surgery | DX: Z01.812 Encounter for preprocedural laboratory examination (principal); Z20.828 Contact with and (suspected) exposure to other viral communicable diseases | CPT/HCPCS: U0003; C9803 ==

== ENCOUNTER → 2020-09-25 | Outpatient (CLI) | payer BC | END | disposition home or self-care (01) | LOC: LABWHC1 16:37 | PROVIDERS: ATTEND Internal Medicine | DX: J02.9 Acute pharyngitis, unspecified (principal); R53.83 Other fatigue | CPT/HCPCS: U0003; C9803 ==

== ENCOUNTER → 2020-11-19 | Outpatient (CLI) | payer BC | END | disposition home or self-care (01) | LOC: LABWHC1 14:16 | PROVIDERS: ATTEND Otolaryngology | DX: T78.2XXA Anaphylactic shock, unspecified, initial encounter (principal); L50.0 Allergic urticaria | CPT/HCPCS: 36415; 86003 ==

== ENCOUNTER → 2021-04-22 | Outpatient (CLI) | payer BC | END | disposition home or self-care (01) | DX: R10.9 Unspecified abdominal pain (principal) | CPT/HCPCS: 74177; Q9967 ==

== ENCOUNTER → 2021-05-08 | Outpatient (CLI) | payer BC ==
[2021-05-08 14:49] LABS: Basophils # (A) 0.07 X 10*3/uL (0.00-0.10); Basophils % (A) 1.3 %; Eosinophils # (A) 0.15 X 10*3/uL (0.04-0.35); Eosinophils % (A) 2.8 %; HCT 42.7 % (37.2-46.3); HGB 13.2 g/dL (12.0-15.0); Lymphocytes # (A) 2.96 X 10*3/uL (0.90-5.00); Lymphocytes % (A) 54.3 %; MCH 28.2 pg (27.0-32.0); MCHC 30.9 g/dL (32.0-37.0); MCV 91.2 fL (80.0-97.0); Mean Platelet Volume 10.6 fL (9.5-12.2); Monocytes # (A) 0.48 X 10*3/uL (0.20-1.00); Monocytes % (A) 8.8 %; Neutrophils # (A) 1.78 X 10*3/uL (1.80-7.70); Neutrophils % (A) 32.6 %; Platelet Count 394 X 10*3/uL (140-440); RBC 4.68 X 10*6/uL (4.10-5.20); RDW 14.2 % (11.5-14.5); WBC 5.45 X 10*3/uL (4.50-10.00)
[2021-05-08 16:56] LABS: Hemoglobin A1C 5.6 % (4.0-6.0)
[2021-05-09 01:17] LABS: African American GFR (CKD) 98.2 (60.0-200.0); Albumin 4.6 g/dL (3.80-4.90); Albumin/Globulin Ratio 1.77 (1.60-3.17); BUN/Creat Ratio 18.75 Ratio (12.00-20.00); Chol/HDL Ratio 3.94; Globulin 2.6 g/dL (1.6-3.3); LDL Cholesterol,Calculated 160.4 mg/dL (0.0-131.0); Non-African American GFR(CKD) 84.8 (60.0-200.0); Potassium 4.6 mmol/L (3.5-5.5); Total Bilirubin 0.5 mg/dL (0.3-1.2); Total Protein 7.2 g/dL (6.2-8.2); VLDL Calculation 27.6 mg/dL (5.00-40.00)
[2021-05-09 01:25] LABS: T4, Free (Free Thyroxine) 1.2 ng/dL (0.80-1.80)
== END | disposition home or self-care (01) ==
LOC: LABWHC1 08:50
PROVIDERS: ATTEND Internal Medicine Critical Care Medicine
DX: Z00.00 Encounter for general adult medical examination without abnormal findings (principal); C50.919 Malignant neoplasm of unspecified site of unspecified female breast; J45.909 Unspecified asthma, uncomplicated; M54.5 Low back pain; K21.9 Gastro-esophageal reflux disease without esophagitis; I10 Essential (primary) hypertension
CPT/HCPCS: 36415; 80053; 80061; 82306; 83036; 84439; 84443; 85025

== ENCOUNTER → 2021-06-26 | Outpatient (CLI) | payer BC ==
--- NOTE | 2021-06-26 12:57 | US ---
EXAMINATION TYPE: US thyroid st tissue head/neck DATE OF EXAM: 06/26/2021 COMPARISON: 03/26/2020 CLINICAL HISTORY: 51-year-old female R22.1 Localized swelling, mass and lump, neck. TECHNIQUE: Multiple sonographic images of the thyroid gland are obtained. FINDINGS: GLAND SIZE: Right Lobe: 5.6 x 1.4 x 1.7 cm Overall Parenchyma: homogenous Left Lobe: 5.0 x 1.4 x 1.4 cm Overall Parenchyma: homogeneous Isthmus Thickness: 0.3 cm NODULES RIGHT: # of nodules measured on right: 1. 0.6 X 0.5 x 0.7 cm, upper , solid or almost completely solid, hypoechoic nodule, which is wider than tall, with smooth margins, without echogenic foci. Prior size: 0.7 x 0.5 x 0.7 cm 2. 0.6 X 0.4 x 0.6 cm, upper , solid or almost completely solid, hypoechoic nodule, which is wider than tall, with smooth margins, without echogenic foci. Prior size: 0.5 x 0.5 x 0.6 cm LEFT: # of nodules measured on left: 1. 0.5 X 0.3 x 0.4 cm, upper, solid or almost completely solid, hypoechoic nodule, which is wider than tall, with smooth margins, without echogenic foci. Prior size: 0.5 x 0.3 x 0.3 cm ISTHMUS: # of nodules measured in the isthmus: 0 Bilateral neck scanned, no evidence of lymphadenopathy. IMPRESSION: 1. Borderline to mild thyromegaly. 2. A few subcentimeter solid TR4 nodules, largest 7 mm, remain unchanged.
== END | disposition home or self-care (01) ==
LOC: RADUSWWP 09:01
PROVIDERS: ATTEND Internal Medicine Critical Care Medicine
DX: E04.1 Nontoxic single thyroid nodule (principal); R22.1 Localized swelling, mass and lump, neck
CPT/HCPCS: 76536

== ENCOUNTER 2021-08-04 16:54 | Emergency (ER) | payer BC ==
[2021-08-04 18:28] VITALS: RESP 20; TEMP 98.7
--- NOTE | 2021-08-04 20:36 | XR ---
EXAMINATION TYPE: XR chest 2V DATE OF EXAM: 08/04/2021 COMPARISON: 01/30/2019 HISTORY: Chest pain and dyspnea. TECHNIQUE: Frontal and lateral views of the chest are obtained. FINDINGS: There is no focal air space opacity, pleural effusion, or pneumothorax seen. The cardiac silhouette size is within normal limits. The osseous structures are intact. IMPRESSION: No acute cardiopulmonary process.
[2021-08-04 21:18] LABS: Basophils # (A) 0.1 k/uL (0-0.2); Basophils % (A) 1 %; Eosinophils % (A) 0 %; HCT 46.2 % (34.0-46.0); HGB 14.6 gm/dL (11.4-16.0); Lymphocytes % (A) 24 %; MCH 28.9 pg (25.0-35.0); MCHC 31.5 g/dL (31.0-37.0); MCV 91.7 fL (80.0-100.0); Mean Platelet Volume 7.9; Monocytes # (A) 0.5 k/uL (0-1.0); Monocytes % (A) 6 %; Neutrophils # (A) 5.6 k/uL (1.3-7.7); Neutrophils % (A) 68 %; Platelet Count 445 k/uL (150-450); RBC 5.04 m/uL (3.80-5.40); RDW 14.2 % (11.5-15.5); WBC 8.3 k/uL (3.8-10.6)
[2021-08-04 21:24] LABS: ALT 32 U/L (4-34); AST 31 U/L (14-36); African American GFR (CKD) >90 (>60 ml/min/1.73 sqM); Albumin 4.8 g/dL (3.5-5.0); Alkaline Phosphatase 106 U/L (38-126); Anion Gap 10 mmol/L; Blood Urea Nitrogen 19 mg/dL (7-17); Calcium 10.4 mg/dL (8.4-10.2); Carbon Dioxide 28 mmol/L (22-30); Chloride 101 mmol/L (98-107); Glucose 107 mg/dL (74-99); Non-African American GFR(CKD) >90 (>60 ml/min/1.73 sqM); Potassium 4.6 mmol/L (3.5-5.1); Sodium 139 mmol/L (137-145); Total Bilirubin 0.3 mg/dL (0.2-1.3)
--- NOTE | 2021-08-04 21:58 | ED ---
General Adult HPI - General Chief complaint: Recheck/Abnormal Lab/Rx Stated complaint: High HR Source: patient Mode of arrival: ambulatory Limitations: no limitations - History of Present Illness Initial comments: This 51-year-old female presents with a complaint of some coughing as well as slight headache and fatigue. She has had yellowish production with her cough. She denies any definite fevers. She denies any shortness of breath or chest pain. She was seen at the urgent care yesterday and they noted that her heart rate was elevated. They took a covid tests on her and this is pending. She was called back to go in again today due to her previously elevated heart rate yesterday and was reevaluated. Her heart rate was still between 110 and 1:15 in the center to the emergency department to rule out the possibility of pulmonary embolism. She is denying any leg pain or swelling. She has no history of DVT or PE. She has no loss of taste or smell. She was placed on steroids as well as Zithromax antibiotics. She does have a history of asthma and has an albut tali inhaler at home and also breathing treatments at home. She took a breathing treatment this morning with some relief. She does relate significant nasal congestion with suspected postnasal drip. She has tried some Zyrtec D with limited relief. No other complaints or modifying factors. - Related Data Home Medications Medication Instructions Recorded Confirmed Cetirizine HCl/Pseudoephedrine 1 tab PO BID PRN 04/25/14 08/04/21 [Zyrtec-D Tablet] Montelukast Sodium [Singulair] 10 mg PO DAILY 04/25/14 08/04/21 RABEprazole SODIUM [Aciphex] 20 mg PO BID 04/25/14 08/04/21 Salmeterol Xinafoate [Serevent 1 puff INHALATION RT-BID PRN 01/30/19 08/04/21 Diskus] Allergies Allergy/AdvReac Type Severity Reaction Status Date / Time adhesive Allergy Rash/Hives Verified 08/04/21 21:42 coconut Allergy Anaphylaxis Verified 08/04/21 21:42 corn syrup Allergy Wheezing Verified 08/04/21 21:42 Milk Containing Products Allergy Wheezing Verified 08/04/21 21:42 walnut Allergy Anaphylaxis Verified 08/04/21 21:42 Review of Systems ROS Statement: Those systems with pertinent positive or pertinent negative responses have been documented in the HPI. ROS Other: All systems not noted in ROS Statement are negative. Past Medical History Past Medical History: Asthma, Cancer, GERD/Reflux, Hypertension Additional Past Medical History / Comment(s): seasonal allergies, breast cancer. VERTIGO History of Any Multi-Drug Resistant Organisms: None Reported Past Surgical History: Breast Surgery, Hysterectomy, Tonsillectomy Additional Past Surgical History / Comment(s): lumpectomy bilat. bladder repair x2- r/t 2013 bladder and urethra injury during hysterectomy. rt breast incisional bx. colonocopy. laporoscopy. colonoscopy. oophorectomy Past Anesthesia/Blood Transfusion Reactions: Previous Problems w/ Anesthesia, Motion Sickness, Postoperative Nausea & Vomiting (PONV) Additional Past Anesthesia/Blood Transfusion Reaction / Comment(s): sensitive to general anesthesia Past Psychological History: No Psychological Hx Reported Smoking Status: Never smoker Past Alcohol Use History: Occasional Past Drug Use History: None Reported - Past Family History Mother Family Medical History: No Reported History General Exam - General Exam Comments Initial Comments: GENERAL: The patient is well nourished and well hydrated. VITAL SIGNS: Heart rate, blood pressure, respiratory rate reviewed as recorded in nurse's notes. EYES: Pupils are round and reactive. Extraocular movements are intact. No conjunctival / lid redness or swelling. ENT: No external evidence of injury, swelling, or ecchymosis. Airway is patent. Throat is clear. NECK: Nontender. No swelling or evidence of injury. No subcutaneous emphysema. Trachea is midline. No thyroid mass. HEART: Regular rate and rhythm. Good peripheral pulses. LUNGS/CHEST: Breath sounds clear and equal bilaterally. No rales, rhonchi, or wheezes. No ecchymosis, subcutaneous emphysema, or tenderness. ABDOMEN: Abdomen soft without tenderness. No palpable masses or organomegaly. No peritoneal signs. No abdominal wall swelling or ecchymosis. EXTREMITIES: No extremity tenderness. Normal muscle tone and function. No thoracolumbar tenderness. NEUROLOGIC: Sensation is grossly intact. Cranial nerve exam reveals face is symmetrical, tongue is midline, speech is clear. SKIN: No abrasions or ecchymosis is noted. No induration or masses noted. PSYCHIATRIC: Alert and oriented. Appropriate behavior and judgment. Limitations: no limitations Course Vital Signs 08/04/21 18:25 Temperature 98.7 F Pulse Rate 104 H Respiratory 20 Rate Blood Pressure 157/89 O2 Sat by Pulse 98 Oximetry Medical Decision Making - Medical Decision Making The patient was seen and examined. All diagnostics were reviewed. Covert testis on to be negative. Chest x-ray appears normal without any evidence of pneumonia. The laboratory is essentially within normal limits and patient has a negative d-dimer. It is not felt as though she has a pulmonary embolism at this time. She likely may have a degree of bronchitis or sinusitis. She is on antibiotic steroids and albuterol currently. Is felt as though she has good treatment at this point in time. Her tachycardia likely is due to her infection. Return parameters are discussed. Close follow-up recommended. - Lab Data Result diagrams: 08/04/21 20:54 08/04/21 20:54 Lab Results 08/04/21 08/04/21 08/04/21 Range/Units 19:59 20:54 20:54 WBC 8.3 (3.8-10.6) k/uL RBC 5.04 (3.80-5.40) m/uL Hgb 14.6 (11.4-16.0) gm/dL Hct 46.2 H (34.0-46.0) % MCV 91.7 (80.0-100.0) fL MCH 28.9 (25.0-35.0) pg MCHC 31.5 (31.0-37.0) g/dL RDW 14.2 (11.5-15.5) % Plt Count 445 (150-450) k/uL MPV 7.9 Neutrophils % 68 % Lymphocytes % 24 % Monocytes % 6 % Eosinophils % 0 % Basophils % 1 % Neutrophils # 5.6 (1.3-7.7) k/uL Lymphocytes # 2.0 (1.0-4.8) k/uL Monocytes # 0.5 (0-1.0) k/uL Eosinophils # 0.0 (0-0.7) k/uL Basophils # 0.1 (0-0.2) k/uL D-Dimer 0.24 (<0.60) mg/L FEU Sodium (137-145) mmol/L Potassium (3.5-5.1) mmol/L Chloride (98-107) mmol/L Carbon Dioxide (22-30) mmol/L Anion Gap mmol/L BUN (7-17) mg/dL Creatinine (0.52-1.04) mg/dL Est GFR (CKD-EPI)AfAm (>60 ml/min/1.73 sqM) Est GFR (CKD-EPI)NonAf (>60 ml/min/1.73 sqM) Glucose (74-99) mg/dL Calcium (8.4-10.2) mg/dL Total Bilirubin (0.2-1.3) mg/dL AST (14-36) U/L ALT (4-34) U/L Alkaline Phosphatase (38-126) U/L Total Protein (6.3-8.2) g/dL Albumin (3.5-5.0) g/dL Coronavirus (PCR) Not Detected (Not Detectd) 08/04/21 Range/Units 20:54 WBC (3.8-10.6) k/uL RBC (3.80-5.40) m/uL Hgb (11.4-16.0) gm/dL Hct (34.0-46.0) % MCV (80.0-100.0) fL MCH (25.0-35.0) pg MCHC (31.0-37.0) g/dL RDW (11.5-15.5) % Plt Count (150-450) k/uL MPV Neutrophils % % Lymphocytes % % Monocytes % % Eosinophils % % Basophils % % Neutrophils # (1.3-7.7) k/uL Lymphocytes # (1.0-4.8) k/uL Monocytes # (0-1.0) k/uL Eosinophils # (0-0.7) k/uL Basophils # (0-0.2) k/uL D-Dimer (<0.60) mg/L FEU Sodium 139 (137-145) mmol/L Potassium 4.6 (3.5-5.1) mmol/L Chloride 101 (98-107) mmol/L Carbon Dioxide 28 (22-30) mmol/L Anion Gap 10 mmol/L BUN 19 H (7-17) mg/dL Creatinine 0.67 (0.52-1.04) mg/dL Est GFR (CKD-EPI)AfAm >90 (>60 ml/min/1.73 sqM) Est GFR (CKD-EPI)NonAf >90 (>60 ml/min/1.73 sqM) Glucose 107 H (74-99) mg/dL Calcium 10.4 H (8.4-10.2) mg/dL Total Bilirubin 0.3 (0.2-1.3) mg/dL AST 31 (14-36) U/L ALT 32 (4-34) U/L Alkaline Phosphatase 106 (38-126) U/L Total Protein 8.0 (6.3-8.2) g/dL Albumin 4.8 (3.5-5.0) g/dL Coronavirus (PCR) (Not Detectd) Disposition Clinical Impression: Bronchitis, Asthma, Tachycardia, Sinusitis Disposition: HOME SELF-CARE Condition: Good Instructions (If sedation given, give patient instructions): Acute Bronchitis (ED), Sinusitis (ED), Asthma (ED) Additional Instructions: Please continue with her current medication regimen. You may want to add some Mucinex DM if needed for cough and congestion. Please take, and/or Motrin if needed for any fever or pain. Is patient prescribed a controlled substance at d/c from ED?: No Referrals: Lloyd Brooks DO [Primary Care Provider] - 1-2 days Time of Disposition: 21:57
[2021-08-04 22:18] VITALS: BP 137/83; PULSE 93
== END 2021-08-04 22:23 | disposition home or self-care (01) ==
LOC: EC 16:54
DX: J45.909 Unspecified asthma, uncomplicated (principal); J32.9 Chronic sinusitis, unspecified; I10 Essential (primary) hypertension; E78.5 Hyperlipidemia, unspecified; K21.9 Gastro-esophageal reflux disease without esophagitis; Z79.51 Long term (current) use of inhaled steroids; Z91.09 Other allergy status, other than to drugs and biological substances; Z91.011 Allergy to milk products; Z91.018 Allergy to other foods; Z79.899 Other long term (current) drug therapy; Z20.822 Contact with and (suspected) exposure to COVID-19
CPT/HCPCS: 36415; 71046; 80053; 85025; 85379; 87635; 99284

== ENCOUNTER → 2021-08-08 | Outpatient (CLI) | payer BC ==
[2021-08-08 15:58] LABS: African American GFR (CKD) >90 (>60 ml/min/1.73 sqM); Anion Gap 5 mmol/L; Blood Urea Nitrogen 16 mg/dL (7-17); Carbon Dioxide 35 mmol/L (22-30); Chloride 99 mmol/L (98-107); Glucose 112 mg/dL (74-99); Non-African American GFR(CKD) 83 (>60 ml/min/1.73 sqM); Potassium 4.4 mmol/L (3.5-5.1); Sodium 139 mmol/L (137-145)
--- NOTE | 2021-08-10 23:06 | CT ---
EXAMINATION TYPE: CT abdomen pelvis w con DATE OF EXAM: 08/08/2021 COMPARISON: 04/22/2021 HISTORY: 51-year-old female R10.13 EPIGASTRIC PAIN TECHNIQUE: Contiguous axial scanning of the abdomen and pelvis following administration of 100 ml Iso cheri 300 IV contrast. Coronal/sagittal reconstructions performed. 3-D reconstructions of the aorta an d visceral arterial vasculature generated on a dedicated independent workstation. CT DLP: 1823 mGycm Automated exposure control for dose reduction was used. FINDINGS: Heart upper limits of normal in size without pericardial effusion. Dependent atelectasis. Liver enlarged at 19.0 cm at least. Contrast and nonopacified blood admixture within the portal venou s system due to arterial phase imaging. No biliary ductal dilatation. Gallbladder, adrenal glands, kidneys, spleen, and pancreas show no gross abnormality by arterial phas e imaging. Retroaortic left renal vein. No dilated small bowel, free fluid, or free air. No mesenteric or retroperitoneal lymphadenopathy. Tiny periumbilical hernia. Stable prominent but not enlarged right lower quadrant mesenteric lymph node measuring 6 mm. Portions of normal appendix are visualized. Mild stool burden. No pericolonic inflammatory change. There is redemonstrated focal narrowing at the origin of the celiac axis, refer to sagittal image 98 with an impression from the jolly of the diaphragm. SMA and renal arteries are patent. There is an accessory right renal artery noted. SIN is patent. No aneurysmal change. Mild circumferential bladder wall thickening. Uterus surgically absent. Pelvic phlebolith. No abnorma l fluid collection in the pelvis or pelvic lymphadenopathy. Bones: Right-sided L5-S1 posterior lumbar fusion hardware redemonstrated. Fixed grade 2 anterolisthes is here. There appear to be bilateral foraminotomies here as well. IMPRESSION: 1. ON THE SAGITTAL SERIES, IMAGE 98, THERE IS A SIMILAR FOCAL NARROWING AT THE ORIGIN OF THE CELIAC A XIS AND FOCAL DOWNWARD IMPRESSION ON TO THE VESSEL FROM THE JOLLY OF THE DIAPHRAGM. MEDIAN ARCUATE LIG AMENT SYNDROME REMAINS A POSSIBILITY ESPECIALLY GIVEN THE PATIENT'S EPIGASTRIC PAIN. CLINICAL CORRELA TION RECOMMENDED. 2. MILD CIRCUMFERENTIAL BLADDER WALL THICKENING MAY BE CHRONIC FOR THE PATIENT. CORRELATE TO EXCLUDE CYSTITIS.
== END | disposition home or self-care (01) ==
LOC: RADCTMAIN 14:49
PROVIDERS: ATTEND Surgery
DX: R10.13 Epigastric pain (principal)
CPT/HCPCS: 80048; 74177; 36415; Q9967

== ENCOUNTER → 2022-05-19 | Outpatient (CLI) | payer BC ==
[2022-05-19 20:21] LABS: Clam IgE <0.10 kU/L; Codfish IgE <0.10 kU/L; Egg White IgE <0.10 kU/L; Peanut IgE <0.10 kU/L; Scallop IgE <0.10 kU/L; Shrimp IgE <0.10 kU/L; Soybean IgE <0.10 kU/L; Walnut IgE (Food) <0.10 kU/L
[2022-05-19 20:22] LABS: Shrimp IgE <0.10 kU/L; Soybean IgE <0.10 kU/L; Walnut IgE (Food) <0.10 kU/L
[2022-05-21 11:21] LABS: Crab IgE <0.10 kU/L (<0.10); Crab IgE Class CLASS 0; Lettuce IgE Class CLASS 0
[2022-05-21 11:22] LABS: Pork IgE Class CLASS 0
[2022-05-21 11:23] LABS: Beef IgE <0.10 kU/L (<0.10); Beef IgE Class CLASS 0; Potato IgE <0.10 kU/L (<0.10); Potato IgE Class CLASS 0; Salmon IgE <0.10 kU/L (<0.10); Salmon IgE Class CLASS 0
[2022-05-21 11:24] LABS: Apple IgE Class CLASS 0; Egg Yolk IgE Class CLASS 0; Gluten IgE Class CLASS 0; Oat IgE Class CLASS 0; Onion IgE <0.10 kU/L (<0.10); Onion IgE Class CLASS 0; Yeast Bakers/Brew IgE <0.10 kU/L (<0.10); Yeast Bakers/Brew IgE Class CLASS 0
[2022-05-21 11:25] LABS: Celery IgE <0.10 kU/L (<0.10); Celery IgE Class CLASS 0; Chicken IgE Class CLASS 0; Chocolate IgE Class CLASS 0; Latex IgE Class CLASS 0; Lobster IgE <0.10 kU/L (<0.10); Lobster IgE Class CLASS 0
[2022-05-21 11:26] LABS: Avocado Class CLASS 0; Banana IgE Class CLASS 0; Coffee IgE <0.10 kU/L (<0.10); Coffee IgE Class CLASS 0; Hazelnut IgE <0.10 kU/L (<0.10); Hazelnut IgE Class CLASS 0; Kiwi IgE <0.10 kU/L (<0.10); Kiwi IgE Class CLASS 0; Tea IgE <0.10 kU/L (<0.10); Tea IgE Class CLASS 0
== END | disposition home or self-care (01) ==
LOC: LABWHC1 09:42
PROVIDERS: ATTEND Otolaryngology
DX: J30.89 Other allergic rhinitis (principal)
CPT/HCPCS: 36415; 82785; 86003

== ENCOUNTER → 2023-12-15 | Outpatient (CLI) | payer BC ==
--- NOTE | 2023-12-15 14:19 | US ---
EXAMINATION TYPE: US thyroid st tissue head/neck DATE OF EXAM: 12/15/2023 COMPARISON: 11/25/2022 06/26/2021 03/26/2020 10/28/2018 11/01/2017 10/27/2016 07/09/2015 CLINICAL INDICATION: Female, 53 years old with history of E04.2 NONTOXIC MULTINODULAR GOITER; Patient denies any changes from last exam GLAND SIZE: Right Lobe: 4.6 x 1.2 x 1.8 cm Overall Parenchyma: homogeneous Left Lobe: 4.8 x 1.2 x 1.4 cm Overall Parenchyma: homogeneous Isthmus Thickness: 0.2 cm NODULES RIGHT: # of nodules measured on right: 2 1. 0.7 X 0.5 x 0.7 cm, upper lateral, solid or almost completely solid, hypoechoic nodule, which is wider than tall, with smooth margins, without echogenic foci. TR 4. Prior size: 0.7 x 0.6 x 0.6 cm 2. 0.5 X 0.5 x 0.6 cm, upper lateral, solid or almost completely solid, very hypoechoic nodule, whi ch is wider than tall, with smooth margins, without echogenic foci. Prior size: 0.6 x 0.6 x 0.6 cm LEFT: # of nodules measured on left: 1 1. 0.5 X 0.3 x 0.4 cm, mid lateral, solid or almost completely solid, hypoechoic nodule, which is w ider than tall, with smooth margins, without echogenic foci. Prior size: 0.4 x 0.3 x 0.3 cm ISTHMUS: # of nodules measured in the isthmus: 0 Bilateral neck scanned, no evidence of lymphadenopathy. IMPRESSION: Moderately suspicious stable appearing subcentimeter nodules. 2017 ACR TI-RADS LEVEL: TR-RADS 4 - Moderately Suspicious: Follow if > 1 cm, FNA if > 1.5 cm *Highest TI-RADS level nodule reported
== END | disposition home or self-care (01) ==
LOC: RADUSWWP 10:26
PROVIDERS: ATTEND Internal Medicine Endocrinology, Diabetes & Metabolism
DX: E04.2 Nontoxic multinodular goiter (principal)
CPT/HCPCS: 76536

== ENCOUNTER → 2024-08-12 | Outpatient (CLI) | payer BC ==
[2024-08-13 07:36] LABS: Basophils # (A) 0.09 X 10*3/uL (0.00-0.10); Basophils % (A) 1.7 %; Eosinophils # (A) 0.14 X 10*3/uL (0.04-0.35); Eosinophils % (A) 2.7 %; HCT 44.9 % (37.2-46.3); HGB 14.4 g/dL (12.0-15.0); Lymphocytes # (A) 2.15 X 10*3/uL (0.90-5.00); Lymphocytes % (A) 41.4 %; MCH 28.4 pg (27.0-32.0); MCHC 32.1 g/dL (32.0-37.0); MCV 88.6 FL (80.0-97.0); Monocytes # (A) 0.39 X 10*3/uL (0.20-1.00); Monocytes % (A) 7.5 %; NRBC Per 100 WBC 0 X 10*3/uL (0.00-0.01); Neutrophils # (A) 2.41 X 10*3/uL (1.80-7.70); Neutrophils % (A) 46.5 %; Platelet Count 449 X 10*3/uL (140-440); RBC 5.07 X 10*6/uL (4.10-5.20); RDW 14.1 % (11.5-14.5); WBC 5.19 X 10*3/uL (4.50-10.00)
[2024-08-13 08:41] LABS: ALT 40 U/L (8-44); AST 29 U/L (13-35); Albumin 4.7 g/dL (3.8-4.9); Albumin/Globulin Ratio 1.81 Ratio (1.60-3.17); Alkaline Phosphatase 101 U/L (41-126); BUN/Creat Ratio 18.71 Ratio (12.00-20.00); Blood Urea Nitrogen 13.1 mg/dL (9.0-27.0); Calcium 10.3 mg/dL (8.7-10.3); Carbon Dioxide 30.8 mmol/L (21.6-31.8); Chloride 102 mmol/L (96-109); Chol/HDL Ratio 3.69 Ratio; Globulin 2.6 g/dL (1.6-3.3); Glucose 96 mg/dL (70-110); Potassium 4.4 mmol/L (3.5-5.5); Sodium 142 mmol/L (135-145); T4, Free (Free Thyroxine) 1.04 ng/dL (0.80-1.80); Total Bilirubin 0.3 mg/dL (0.3-1.2); Total Protein 7.3 g/dL (6.2-8.2)
== END | disposition home or self-care (01) ==
LOC: LABWHC1 09:34
PROVIDERS: ATTEND Internal Medicine Critical Care Medicine
DX: C50.919 Malignant neoplasm of unspecified site of unspecified female breast (principal); E78.5 Hyperlipidemia, unspecified; M85.80 Other specified disorders of bone density and structure, unspecified site
CPT/HCPCS: 36415; 80053; 80061; 82306; 83036; 84439; 84443; 85025

== ENCOUNTER → 2024-12-15 | Outpatient (CLI) | payer BC ==
--- NOTE | 2024-12-15 15:41 | US ---
EXAMINATION TYPE: US thyroid st tissue head/neck DATE OF EXAM: 12/15/2024 COMPARISON: US CLINICAL INDICATION: Female, 54 years old with history of E04.2 NONTOXIC MULTINODULAR GOITER; F/U TECHNIQUE: Grayscale and color Doppler imaging of the thyroid gland. FINDINGS: GLAND SIZE: Right Lobe: 3.9 x 1.3 x 1.7 cm Overall Parenchyma: homogeneous Left Lobe: 4.2 x 1.3 x 1.5 cm Overall Parenchyma: homogeneous Isthmus Thickness: 0.3 cm NODULES RIGHT: # of nodules measured on right: 2 1. 0.5 X 0.4 x 0.5 cm, upper, solid or almost completely solid, hypoechoic nodule, which is wider t arias tall, with smooth margins, without echogenic foci. Prior size: 0.7 x 0.5 x 0.7 cm 2. 0.6 X 0.4 x 0.5 cm, upper, solid or almost completely solid, hypoechoic nodule, which is wider t arias tall, with smooth margins, without echogenic foci. Prior size: 0.5 x 0.5 x 0.6 cm LEFT: # of nodules measured on left: 1 1. 0.4 X 0.3 x 0.3 cm, mid lateral, solid or almost completely solid, hypoechoic nodule, which is w ider than tall, with smooth margins, without echogenic foci. Prior size: 0.5 x 0.3 x 0.4 cm ISTHMUS: # of nodules measured in the isthmus: 0 Bilateral neck scanned, no evidence of lymphadenopathy. Stable sub-centimeter nodules bilaterally. IMPRESSION: Subcentimeter nodules, stable from comparison 2017 ACR TI-RADS LEVEL: TI-RADS 4 - Moderately Suspicious: Follow if > 1 cm, FNA if > 1.5 cm *Highest TI-RADS level nodule reported [email or web address] [facility], , 12/15/2024 3:38 PM
== END | disposition home or self-care (01) ==
LOC: RADUSWWP 10:32
PROVIDERS: ATTEND Internal Medicine Endocrinology, Diabetes & Metabolism
DX: E04.2 Nontoxic multinodular goiter (principal)
CPT/HCPCS: 76536

== ENCOUNTER → 2025-04-16 | Outpatient (CLI) | payer BC ==
--- NOTE | 2025-04-16 10:28 | XR ---
EXAMINATION TYPE: XR knee complete LT DATE OF EXAM: 04/16/2025 10:06 AM COMPARISON: None. CLINICAL INDICATION: Female, 55 years old with history of M25.562 PAIN IN LEFT KNEEM25.562 PAIN IN LE FT KNEE, pain TECHNIQUE: Three views of the right knee are obtained. FINDINGS: There is no acute fracture/dislocation evident in right knee. The tri-compartment joint s paces appear within normal limits. The overlying soft tissue appears unremarkable. IMPRESSION: There is no acute fracture or dislocation in the right knee. [facility], , 04/16/2025 10:25 AM
== END | disposition home or self-care (01) ==
LOC: RADXRMAIN 09:52
PROVIDERS: ATTEND Internal Medicine Critical Care Medicine
DX: M25.562 Pain in left knee (principal)